=== PATIENT | male | born 1945 | race Caucasian/White ===

== ENCOUNTER 2016-09-30 20:50 | Observation (INO) | payer MEDICARE, BC ==
[~2016-09-30] VITALS: Ht 177.8 cm; Wt 80.6 kg
[~2016-09-30 20:50] MED LIST: ASPI-730 PO; FISH1CAP59 PO; UBID50TA3
--- OUTSIDE RECORDS SUMMARY | 2016-09-30 20:53 | XMS REPORT | Continuity of Care Document ---
Author Author [facility] Organization [facility] Address Unknown Phone Unavailable Care Team Providers Care Special Delivery Worker Name Role Phone FER WINKLER M.D. Primary Care Physician [phone] Insurance Providers Payer Name Policy Number Subscriber Name Relationship s Medicare [id number] Kayleen Doyle 01 Self / Same As Patient [employer]ET[employer] [id number] Nara Doyle 01 Self / Same As Patient Chief Complaint and Reason for Visit Chief Complaint Fall Reason for Visit Contusion of back Fall [id number] Laceration of scalp Problems Medical Problems Problem Onset Date Status Contusion of back Unknown Active Fall Unknown Active Back pain, thoracic Unknown Active Laceration of scalp Unknown Active Contusion of back Unknown Active Medications Medication Dose Route Sig Days/Qty Instructions Order Date Discontinued Date Status [None] 09/08/09 Active Acetaminophen/Hydrocodone Bitart 1 Tab PO q4-6hr PRN 20 Qty for pain 10/26 Active Cyclobenzaprine Hcl 10 Mg PO Every 8 hours as needed 15 Qty 02/15/14 Active Social History Social History Problem Response Recorded Date/Time Smoking Status Never smoker 02/15/2014 4:28pm Query Response Start Date Stop Date Smoking Status Never smoker Hospital Discharge Instructions No hospital discharge instructions. Plan of Care Discharge Date 02/15/14 6:58pm Disposition 01 HOME, SELF-CARE Condition at Discharge Stable Instructions/Education Provided Minor Head Injury (ED) Acute Wound Care (ED) Acute Low Back Pain (ED) Contusions in Adults (ED) Prescriptions See Medications Section Referrals FER WINKLER M.D., HENRY R MD Functional Status No functional status results. Allergies, Adverse Reactions, Alerts Allergen Type Severity Reaction Status Last Updated NO KNOWN MEDICATION ALLERGIES Adverse Reaction Unknown Active 09/08/09 Immunizations No immunization records. Vital Signs Acute Vital Signs Vital Response Date/Time Blood Pressure 142/74 mm Hg 02/15/2014 6:50pm Blood Pressure Mean 96 mm Hg 02/15/2014 6:50pm Pulse 02/15/2014 6:50pm Pulse Rate: ED 58 bpm 02/15/2014 6:50pm Respiratory Rate 14 breaths per minute (10 - 20) 02/15/2014 6:50pm Results No known relevant diagnostic tests, laboratory data and/or discharge summary. Procedures No known history of procedures. Encounters Encounter Location Date/Time Departed Emergency Room [facility] 02/15/14 4:24pm Recent Diagnosis
--- OUTSIDE RECORDS SUMMARY | 2016-09-30 20:53 | XMS REPORT | Continuity of Care Document ---
Author Author [facility] Organization [facility] Address Unknown Phone Unavailable Allergies Active Description Code Type Severity Reaction Onset Reported/Identified Relationship to Patient Clinical Status Yes No Known Medication Allergies NKMA N/A N/A 02/18/2014 Yes No Known Medication Allergies NKMA N/A N/A 02/18/2014 Medications Medication Packaging Start Date Stop Date Route Dosage Sig clopidogrel(clopidogrel 75 mg oral tablet) 1 tabs 01/29/2014 Oral 75 mg 1 tabs, Oral, Daily, 90 tabs albuterol(albuterol) 02/18/2014 04/16/2014 See Instructions , Albuterol HFA. Inhale 2 Inhalation route every 4 hours as needed., 1 Each oxyCODONE-acetaminophen(Percocet 10/325 oral tablet) 1 tabs 02/19/2014 06/17/2014 Oral 1 tabs, Oral, q4hr, 30 tabs, PRN: as needed for pain oxyCODONE-acetaminophen(Percocet 10/325 oral tablet) 1 tabs 02/25/2014 03/04/2014 Oral 1 tabs, Oral, q4hr, 42 tabs, PRN: as needed for pain oxyCODONE-acetaminophen(Percocet 10/325 oral tablet) 1 tabs 03/04/2014 03/14/2014 Oral 1 tabs, Oral, q6hr, 40 tabs, PRN: as needed for pain aspirin(aspirin 81 mg oral tablet) 1 tabs 03/09/20142015 Oral 81 mg 1 tabs, Oral, Daily, 30 tabs oxyCODONE-acetaminophen(Percocet 10/325 oral tablet) 1 tabs 03/18/2014 03/28/2014 Oral 1 tabs, Oral, q6hr, 40 tabs, PRN: as needed for pain tamsulosin(Flomax 0.4 mg oral capsule) 1 caps 04/16/20142015 Oral 0.4 mg 1 caps, Oral, Daily, 30 minutes after the same meal, 30 caps omeprazole(PriLOSEC 20 mg oral delayed release capsule) 1 caps 04/16/2014 08/26/2014 Oral 20 mg 1 caps, Oral, Daily, 30 caps simvastatin(simvastatin 40 mg oral tablet) 1 tabs 04/23/2014 Oral 40 mg 1 tabs, Oral, Bedtime (once a day), 30 tabs metoprolol(Toprol-XL 25 mg oral tablet, extended release) 1 tabs 05/12/2014 05/24/2016 Oral 25 mg 1 tabs, Oral, Daily, 30 tabs levofloxacin(Levaquin 500 mg oral tablet) 1 tabs 06/17/2014 Oral 500 mg 1 tabs, Oral, q24hr, 10 tabs albuterol(Ventolin HFA 90 mcg/inh inhalation aerosol) 2 puffs 06/17/2014 05/24/2016 Inhalation 2 puffs, Inhalation, QID, 8 g, PRN: as needed for wheezing predniSONE(predniSONE 10 mg oral tablet) 3 tabs 06/17/201404/2014 Oral 30 mg 3 tabs, Oral, qAM, 21 tabs predniSONE(predniSONE 10 mg oral tablet) 1 tabs 06/23/201406/2015 Oral 10 mg 1 tabs, Oral, Daily, take 2 qam x 7days, then 1 [id number], 21 tabs omeprazole(PriLOSEC 40 mg oral delayed release capsule) 1 caps 08/26/2014 05/24/2016 Oral 40 mg 1 caps, Oral, Daily, 30 caps tamsulosin(Flomax 0.4 mg oral capsule) 1 caps 05/24/2016 Oral 0.4 mg 0.4 mg=1 caps, Oral, Daily, 30 caps, 11 Refill(s) betamethasone topical(betamethasone valerate 0.1% topical cream) 1 shanel 05/24/2016 Topical 1 shanel, Topical, BID, 90 g, 0 Refill(s) Problems Date Dx Coded Attending Type Code Diagnosis Diagnosed By 07/02/2014 Christiano Dumont MD Reason 805.2 CLOSED FRACTURE OF DORSAL [THORACIC] VERTEBRA WITHOUT MENTION OF SPINAL COR 07/02/2014 Christiano Dumont MD Final V64.1 SURGICAL OR OTHER PROCEDURE NOT CARRIED OUT BECAUSE OF CONTRAINDICATION Procedures Results Encounters ACCT No. Visit Date/Time Discharge Status Pt. Type Provider Facility Loc./Unit Complaint [id number] 06/30/2014 08:36:00 2013 14:05:00 DIS Outpatient Tim SINGH, [facility] [address] [facility] T8 [id number] 05/25/2016 05:18:10 Document Registration [id number] 05/04/2015 11:16:30 Document Registration [id number] 05/04/2015 10:40:27 Document Registration [id number] 05/04/2015 10:32:56 Document Registration [id number] 05/04/2015 10:11:47 Document Registration [id number] 05/04/2015 10:04:08 Document Registration [id number] 05/04/2015 09:59:24 Document Registration [id number] 05/04/2015 09:49:34 Document Registration [id number] 05/04/2015 09:44:20 Document Registration [id number] 05/04/2015 09:38:19 Document Registration
--- OUTSIDE RECORDS SUMMARY | 2016-09-30 20:53 | XMS REPORT | Referral Summary ---
Author Author [facility] Organization [facility] Address Unknown Phone Unavailable Care Team Providers Care Repair Technician Name Role Phone Natalie Dumont Primary Care Physician [phone] Encounter VC Date(s): 05/24/16 - 05/24/16 [facility] [address] [place], [place] [address] Discharge Disposition: 01-Home or Self Care Attending Physician: Christiano Dumont MD Vital Signs Most recent to 1 oldest [Reference Range]: Peripheral Pulse 68 bpm Rate [60-100 bpm] (05/24/16 10:56 AM) Blood Pressure 132/60 mmHg [90-140/60-90 mmHg] (05/24/16 10:56 AM) SpO2 98 % (05/24/16 10:56 AM) Problem List Condition Effective Dates Status Health Status Informant Anxiety(Confirmed) Active Compression Active patient fracture(Confirmed)1 Gout Active (disorder)(Confirmed ) Gout(Confirmed) Active Hyperlipidemia(Confi Active rmed) Hyperlipidemia(Confi Active patient rmed) Neck pain Active (finding)(Confirmed) Neck pain(Confirmed) Active Pericarditis(Confirm 1963 Active ed) Polymyalgia(Confirme Active d) Polymyalgia Active rheumatica (disorder)(Confirmed ) Rheumatoid Active arthritis(Confirmed) 1T8 Allergies, Adverse Reactions, Alerts No Known Medication Allergies Medications betamethasone valerate 0.1% topical cream 1 shanel, Topical, BID, # 90 g, 0 Refill(s), Pharmacy: [facility] Start Date: 05/24/16 Status: Ordered Flomax 0.4 mg oral capsule 0.4 mg 1 caps, Oral, Daily, # 30 caps, 11 Refill(s), Pharmacy: [facility], 1 caps Oral Daily Start Date: 05/24/16 Status: Ordered Results No data available for this section Immunizations No data available for this section Procedures Procedure Date Related Diagnosis Body Site Angioplasty1 08/15/11 1X 2 Social History Social History Type Response Smoking Status Former smoker; Tobacco use per day: 1 Pack; Started at age: 15; Stopped at age: 32; Concerns about tobacco use in household: No Assessment and Plan Extracted from: Title: Ambulatory Patient Education Author: Pennie Culver Date: Immunology Eczema Eczema, also called atopic dermatitis, is a skin disorder that causes inflammation of the skin. It causes a red rash and dry, scaly skin. The skin becomes very itchy. Eczema is generally worse during the cooler winter months and often improves with the warmth of summer. Eczema usually starts showing signs in infancy. Some children outgrow eczema, but it may last through adulthood. CAUSES The exact cause of eczema is not known, but it appears to run in families. People with eczema often have a family history of eczema, allergies, asthma, or hay fever. Eczema is not contagious. Flare-ups of the condition may be caused by: Contact with something you are sensitive or allergic to. Stress. SIGNS AND SYMPTOMS Dry, scaly skin. Red, itchy rash. Itchiness. This may occur before the skin rash and may be very intense. DIAGNOSIS The diagnosis of eczema is usually made based on symptoms and medical history. TREATMENT Eczema cannot be cured, but symptoms usually can be controlled with treatment and other strategies. A treatment plan might include: Controlling the itching and scratching. Use tizc-wmw-bkgfsfm antihistamines as directed for itching. This is especially useful at night when the itching tends to be worse. Use ehsf-qsp-agkjknx steroid creams as directed for itching. Avoid scratching. Scratching makes the rash and itching worse. It may also result in a skin infection (impetigo) due to a break in the skin caused by scratching. Keeping the skin well moisturized with creams every day. This will seal in moisture and help prevent dryness. Lotions that contain alcohol and water should be avoided because they can dry the skin. Limiting exposure to things that you are sensitive or allergic to ( allergens). Recognizing situations that cause stress. Developing a plan to manage stress. HOME CARE INSTRUCTIONS Only take qneh-xlo-ylnenxk or prescription medicines as directed by your health care provider. Do not use anything on the skin without checking with your health care provider. Keep baths or showers short (5 minutes) in warm (not hot) water. Use mild cleansers for bathing. These should be unscented. You may add nonperfumed bath oil to the bath water. It is best to avoid soap and bubble bath. Immediately after a bath or shower, when the skin is still damp, apply a moisturizing ointment to the entire body. This ointment should be a petroleum ointment. This will seal in moisture and help prevent dryness. The thicker the ointment, the better. These should be unscented. Keep fingernails cut short. Children with eczema may need to wear soft gloves or mittens at night after applying an ointment. Dress in clothes made of cotton or cotton blends. Dress lightly, because heat increases itching. A child with eczema should stay away from anyone with fever blisters or cold sores. The virus that causes fever blisters (herpes simplex) can cause a serious skin infection in children with eczema. SEEK MEDICAL CARE IF: Your itching interferes with sleep. Your rash gets worse or is not better within 1 week after starting treatment. You see pus or soft yellow scabs in the rash area. You have a fever. You have a rash flare-up after contact with someone who has fever blisters. This information is not intended to replace advice given to you by your health care provider. Make sure you discuss any questions you have with your health care provider. Document Released: 06/28/2001 Document Revised: 04/21/2014 Document Reviewed: [employer] Interactive Patient Education 2016 [employer] No follow up information was provided.
--- OUTSIDE RECORDS SUMMARY | 2016-09-30 20:53 | XMS REPORT | Referral Summary ---
Author Organization Unknown Address Unknown Phone Unavailable Care Team Providers Care Gas Station Service Attendant Name Role Phone Natalie Dumont Primary Care Physician [phone] Encounter VC Date(s): 08/24/14 - 08/24/14 [facility] [address] [place], [place] [address] Discharge Disposition: Home or Self Care Attending Physician: Christiano Dumont MD Admitting Physician: Christiano Dumont MD Vital Signs No data available for this section Problem List Condition Effective Dates Status Health Status Informant Anxiety(Confirmed) Active Compression Active patient fracture(Confirmed)1 Gout(Confirmed) Active Gout Active (disorder)(Confirmed ) Hyperlipidemia(Confi Active rmed) Hyperlipidemia(Confi Active patient rmed) Neck pain(Confirmed) Active Neck pain Active (finding)(Confirmed) Pericarditis(Confirm 1962 Active ed) Polymyalgia(Confirme Active d) Polymyalgia Active rheumatica (disorder)(Confirmed ) Rheumatoid Active arthritis(Confirmed) 1T8 Allergies, Adverse Reactions, Alerts No Known Medication Allergies Medications aspirin 81 mg oral tablet 1 tabs, Oral, Daily, # 30 tabs, 0 Refill(s) Start Date: 03/09/14 Status: Ordered Flomax 0.4 mg oral capsule 1 caps, Oral, Daily, 30 minutes after the same meal, # 30 caps, 0 Refill(s), Pharmacy: [id number], 1 caps Oral Daily,x30 days,Instr:30 minutes after the same meal Special Instructions: 30 minutes after the same meal Start Date: 04/16/14 Stop Date: 05/16/14 Status: Ordered predniSONE 10 mg oral tablet 1 tabs, Oral, Daily, take 2 qam x 7days, then 1 [id number], # 21 tabs, 1 Refill(s ), Pharmacy: [id number], 1 tabs Oral Daily,Instr:take 2 qam x 7days, then 1 [id number] Special Instructions: take 2 qam x 7days, then 1 [id number] Start Date: 06/23/14 Stop Date: 05/25/19 Status: Ordered PriLOSEC 20 mg oral delayed release capsule 1 caps, Oral, Daily, # 30 caps, 0 Refill(s), Pharmacy: [facility] [id number], 1 caps Oral Daily,x30 days Start Date: 04/16/14 Stop Date: 05/16/14 Status: Ordered simvastatin 40 mg oral tablet 1 tabs, Oral, Bedtime (once a day), # 30 tabs, 11 Refill(s), Pharmacy: [facility] [id number], 1 tabs Oral Bedtime (once a day),x30 days Start Date: 04/23/14 Stop Date: 04/18/15 Status: Ordered Toprol-XL 25 mg oral tablet, extended release 1 tabs, Oral, Daily, # 30 tabs, 11 Refill(s), Pharmacy: [facility] [id number], 1 tabs Oral Daily Start Date: 05/12/14 Status: Ordered Ventolin HFA 90 mcg/inh inhalation aerosol 2 puffs, Inhalation, QID, as needed for wheezing, # 8 g, 3 Refill(s), Pharmacy: [facility] [id number], 2 puffs Inhalation QID,PRN:as needed for wheezing Start Date: 06/17/14 Status: Ordered Results No data available for this section Immunizations No data available for this section Procedures Procedure Date Related Diagnosis Body Site Angioplasty1 08/15/11 1X 2 Social History Social History Type Response Smoking Status Former smoker; Tobacco use per day: 1 Pack; Started at age: 15; Stopped at age: 32; Concerns about tobacco use in household: No Assessment and Plan No data available for this section
[2016-09-30] MEDS ORDERED: NORMAL SALINE 1,000 ML IV ONE (21:00)
[2016-09-30] MEDS ORDERED: CHOL200024 PO (21:21)
[2016-09-30] MEDS ORDERED: MULT1TAB69 PO (21:21)
[2016-09-30] MEDS ORDERED: IBUP-1547 PO (21:21)
[2016-09-30] MEDS ORDERED: ASPI-557 PO (21:21)
--- NOTE | 2016-09-30 21:29 | ERPDOC ---
Departure Disposition Decision Date: Sep 30, 2016 Disposition Decision Time: 22:17 Disposition: 02 TO [facility] Impression Impression Impression: Primary Impression: Syncope Syncope type: unspecified Qualified Codes: R55 - Syncope and collapse Additional Impression: Bradycardia Condition: Improved Seen By: Physician only Referrals: FER WINKLER (Family) Problems/Meds/Labs Reviewed?: Yes Medications reviewed and manag: Yes Follow up care ordered?: Yes Mental Status: Alert HPI - Syncope General Chief Complaint: Syncope Stated Complaint: HYPOTENSION, NEAR SYNCOPE W/ KANDY Time Seen by Provider: 20:58 Source: patient, family, EMS Exam Limitations: no limitations HPI - Syncope Initial Comments Patient has had several episodes of syncope associated with profound bradycardia today. First episode occurred after the patient came back in from being outside in the heat, he said and began talking with his , and appeared to go to sleep. He was unarousable for several minutes, but by the time EMS arrived, the patient was back to his normal baseline. [facility] personnel tried to sit the patient up, he had another syncopal episode with this that dropped into the 40s, systolic blood pressure less than 70, but responded to being laid back supine with initiation of IV fluids as well. Patient has similar symptoms with 2 other episodes in the past, but has not sought medical treatment for these. Patient has a history of ID 10 years ago with 2 stents, by Dr. Olea in [place] Occurred At: home Onset: Rapid Duration: 1-3 hrs Loss of Consciousness: prolonged (minutes) Current Symptoms: diaphoresis, dizziness, weakness, DENIES: blurred vision, chest pain, headache, injury, lightheadedness, loss of bladder control, loss of bowel control, motionless, nausea, pale, shallow/rapid breathing, weak/absent pulse Hx of Similar Symptoms: Yes Allergies: Coded Allergies: No Known Drug Allergies (Verified Allergy, Unknown, 09/30/16) Past History Past Medical History Metabolic: hypercholesterolemia Cardiac: CAD, ID Surgical History Cardiac: cardiac cath, cardiac stent Vaccines Hx Influenza Vaccination: No Hx Pneumococcal Vaccination: No (does not want ) Social History Smoking Status: Never smoker Does patient use chewing tobac: No Second Hand Exposure: No Substance Use Type: does not use Alcohol Intake: occasionally, 0-2 drinks per day (beer) Last Drink: prior to arrival Marital Status: Record Review Pertinent history updated: Yes Review of Systems Constitutional Constitutional: syncope, DENIES: anorexia, appetite decrease, appetite increase , chills, dizziness, fatigue, fever, night sweats, weakness ENMT Ears: DENIES: pain Hearing: DENIES: hearing loss, tinnitus Balance: DENIES: vertigo Mouth/Throat: DENIES: change in swallowing, change in voice, hoarsness, painful swallowing, sore throat Cardiovascular Cardiac: DENIES: chest pain, dyspnea on exertion Rhythm/Rate: bradycardia, DENIES: irregular beat, palpitations, tachycardia Vascular: DENIES: pedal edema Pulmonary Respiratory: DENIES: cough, dyspnea, pleuritic chest pain GI Upper Abdomen: DENIES: dysphagia, heartburn/indigestion, nausea, pain, vomiting Lower Abdomen: DENIES: blood in stool, constipation, diarrhea, pain General: DENIES: burning, dysuria, frequency, pain, urgency Musculoskeletal General: DENIES: cramps, joint pain, joint swelling, pain, weakness Integumentary Skin: DENIES: rash, sores Physical Exam General General Nourishment: well nourished, well developed, appears stated age Distress Description Patient denies distress, but appears mildly confused and somewhat weak General Body Habitus: well groomed Vitals and Pain First Documented Vital Signs Date Time Temp Pulse Resp B/P Pulse Ox O2 Delivery O2 Flow Rate FiO2 09/30/16 20:52 97.4 75 187/84 97 Room Air Weight: Kilograms: 83.000 Height (feet): 5 Height (inches): 10.00 Triage Pain Scale: RN VS reviewed by Provider: Yes Normal Exams: Head: Normocephalic w/o trauma Eyes: Pupils are PERRLA w/ EOMI, No scleral icterus, irritation, or foreign bodies noted ENMT: No facial trauma, nasal exudates, pharyngeal erythema, or exudates are noted Neck: Full range of motion, without adenopathy, JVD, bruits or thyromegaly Chest/Resp: Clear all dawson, with good airflow, and symmetry bilaterally CV: Regular rate and rhythm, without murmur or gallop, Pulses 2+ all extremities, capillary refill, <2 seconds all ext., no pedal edema noted Abdomen: Bowel sounds positive, soft, non-tender, non-distended, no hepatosplenomegaly, masses or bruits noted Lymphatic: No lymphadenopathy, or lymphedema noted Musculoskeletal: No tenderness, or deformity noted, good range of motion, all extremities Integumentary: No rashes, hives, or bruising noted, hair and nails, without abnormality Neurologic: Patient is alert, and oriented, cranial nerves, motor/sensory/ cerebellar, exams w/o gross deficits, to observation Psychiatric: Patient exhibits, appropriate attention, emotion and affect Progress Results/Orders Orders Procedure Category Date Status Time Iv Lock (Nursing) MARY KAY 09/30/16 In Process 20:58 Cbc W/Auto LAB 09/30/16 Complete Diff-Reflex Manual Ethanol LAB 09/30/16 Complete Troponin I W LAB 09/30/16 Complete Hemolysis Index EKG EKG 09/30/16 Logged Cmp - Comprehensive LAB 09/30/16 Complete Metabolic Normal Saline (Normal PHA 09/30/16 Complete Saline Iv) 21:00 Lab Results Laboratory Tests Test 09/30/16 21:23 White Blood Count 4.2T/MM3 Red Blood Count 3.91M/MM3 Hemoglobin 12.3GM/DL Hematocrit 35.4% Mean Corpuscular Volume 90.5UM3 Mean Corpuscular Hemoglobin 31.5UUG Mean Corpuscular Hemoglobin Concent 34.7GM/DL RDW Standard Deviation 38.7FL Platelet Count 148T/MM3 Mean Platelet Volume 9.0UM3 Immature Granulocyte % (Auto) 0.0% Neutrophils (%) (Auto) 61.4% Lymphocytes (%) (Auto) 20.7% Monocytes (%) (Auto) 9.3% Eosinophils (%) (Auto) 7.6% Basophils (%) (Auto) 1.0% Absolute Immature Granulocyte (auto 0.00T/MM3 Absolute Neutrophils (auto) 2.6T/MM3 Absolute Lymphocytes (auto) 0.9T/MM3 Absolute Monocytes (auto) 0.4T/MM3 Absolute Eosinophils (auto) 0.3T/MM3 Absolute Basophils (auto) 0.0T/MM3 Turbidity < 20 Sodium Level 140MEQ/L Potassium Level 4.0MEQ/L Chloride Level 106MEQ/L Carbon Dioxide Level 25MEQ/L Anion Gap 9MEQ/L Blood Urea Nitrogen 20.0MG/DL Creatinine 1.2MG/DL Glomerular Filtration Rate Calc 60 BUN/Creatinine Ratio 17RATIO Glucose Level 146MG/DL Calculated Osmolality 275MOSM/KG Calcium Level 8.8MG/DL Total Bilirubin 0.70MG/DL Icterus Index < 2 Aspartate Amino Transf (AST/SGOT) 21U/L Alanine Aminotransferase (ALT/SGPT) 25U/L Alkaline Phosphatase 62U/L Troponin I < 0.012ng/ml Total Protein 6.4G/DL Albumin 3.7G/DL Globulin 2.7G/DL Albumin/Globulin Ratio 1.4RATIO Chemistry Specimen Hemolysis < 15 Alcohol, Quantitative 15MG/DL Medications Current ED Medications Sodium Chloride (Normal Saline IV) 1,000 ml @ 0 mls/hr Q0M ONCE IV ; Start at 21:00; Stop 09/30/16 at 21:01; Status DC Progress Progress EKG shows normal sinus rhythm, mild early repolarization most prominent in V2 V3 , unchanged from prior studies. No acute ischemia or STEMI, no other ectopy CBC - N CMP - N Troponin - N After IV fluids, patient states he feels much better, but still appears significantly fatigued Orthostatics after IV fluids - normal Case to discussed with ISIDRO Mccartney for Dr. dagoberto mc, we'll admit the patient to CCU for syncope with bradycardia PEDRO MELVIN MD Sep 30, 2016 21:29
[2016-09-30 21:41] LABS: EOSINOPHILS # (AUTO) 0.3 T/MM3 (0-0.5); EOSINOPHILS % (AUTO) 7.6 % (0-4); HCT - HEMATOCRIT 35.4 % (41-53); HGB - HEMOGLOBIN 12.3 GM/DL (13.5-17.5); LYMPHOCYTES # (AUTO) 0.9 T/MM3 (1-4.8); LYMPHOCYTES % (AUTO) 20.7 % (23-45); MEAN CORPUSCULAR HGB 31.5 UUG (26-34); MEAN CORPUSCULAR HGB CONC(MCHC 34.7 GM/DL (31-37); MEAN CORPUSCULAR VOLUME 90.5 UM3 (80-100); MONOCYTES # (AUTO) 0.4 T/MM3 (0-0.8); MONOCYTES % (AUTO) 9.3 % (0-9.0); NEUTROPHILS #(AUTO)-ABSOLUTE 2.6 T/MM3 (1.8-7.7); NEUTROPHILS % (AUTO) 61.4 % (33-66); RED BLOOD COUNT 3.91 M/MM3 (4.50-5.90); WBC - WHITE BLOOD COUNT 4.2 T/MM3 (4.5-11.0)
[2016-09-30 21:51] LABS: ALBUMIN 3.7 G/DL (3.5-5.0); ALBUMIN/GLOBULIN RATIO 1.4 RATIO (1.1-2.2); ALKALINE PHOSPHATASE 62 U/L (38-126); ALT (SGPT) 25 U/L (21-72); ANION GAP 9 MEQ/L (5-15); AST (SGOT) 21 U/L (17-59); BUN/CREATININE RATIO 17 RATIO (6-26); CALCIUM 8.8 MG/DL (8.4-10.2); CHLORIDE 106 MEQ/L (98-107); CO2 - CARBON DIOXIDE 25 MEQ/L (22-30); CREATININE 1.2 MG/DL (0.8-1.5); ETHANOL 15 MG/DL (<10); GLOMERULAR FILTRATION RATE 60; GLUCOSE 146 MG/DL (75-110); SODIUM 140 MEQ/L (134-144); TOTAL PROTEIN 6.4 G/DL (6.3-8.2)
--- OUTSIDE RECORDS SUMMARY | 2016-09-30 22:45 | XMS REPORT | Continuity of Care Document ---
Author [facility] Organization [facility] Address Unknown Phone Unavailable Care Team Providers Care Central Scheduler Name Role Phone FER WINKLER M.D. Primary Care Physician [phone] Insurance Providers Payer Name Policy Number Subscriber Name Relationship s Medicare [id number] Kayleen Doyle 01 Self / Same As Patient [employer] [id number] Nara Doyle 01 Self / Same As Patient Chief Complaint and Reason for Visit Chief Complaint Fall Reason for Visit Contusion of back Fall [id number] Laceration of scalp Problems Medical Problems Problem [...] Location Date/Time Departed Emergency Room [facility] 02/15/14 4:24pm Recent Diagnosis
--- OUTSIDE RECORDS SUMMARY | 2016-09-30 22:45 | XMS REPORT | Continuity of Care Document ---
Author Author [facility] Organization [facility] Address Unknown Phone Unavailable Allergies Active Description [...] take 2 qam x 7days, then 1 [id number], 21 tabs omeprazole(PriLOSEC 40 mg oral delayed [...] Status Pt. Type Provider Facility Loc./Unit Complaint [id number] 06/30/2014 08:36:00 2013 14:05:00 DIS Outpatient Tim SINGH, [facility] F[facility] T8 [id number] 05/25/2016 05:18:10 Document Registration [id number] 05/04/2015 11:16:30 Document Registration [id number] 05/04/2015 10:40:27 Document Registration [id number] 05/04/2015 10:32:56 Document Registration [id number] 05/04/2015 10:11:47 Document Registration [id number] 05/04/2015 10:04:08 Document Registration [id number] 05/04/2015 09:59:24 Document Registration [id number] 05/04/2015 09:49:34 Document Registration [id number] 05/04/2015 09:44:20 Document Registration [id number] 05/04/2015 09:38:19 Document Registration
--- OUTSIDE RECORDS SUMMARY | 2016-09-30 23:00 | XMS REPORT | Continuity of Care Document ---
Author Author [facility] Organization [facility] Address Unknown Phone Unavailable Care Team Providers Care Cooky Machine Operator Name Role Phone FER WINKLER M.D. Primary Care Physician [phone] Insurance Providers Payer Name Policy Number Subscriber Name Relationship s Medicare [id number] Kayleen Doyle 01 Self / Same As Patient [employer] [id number] Nara Doyle 01 Self / Same As Patient Chief Complaint and Reason for Visit Chief Complaint Fall Reason for Visit Contusion of back Fall [id number] Laceration of scalp Problems Medical Problems Problem [...]
--- OUTSIDE RECORDS SUMMARY | 2016-09-30 23:00 | XMS REPORT | Continuity of Care Document ---
Author Author [facility] Organization [facility] Address Unknown Phone Unavailable Allergies Active Description [...] take 2 qam x 7days, then 1 [id number], 21 tabs omeprazole(PriLOSEC 40 mg oral delayed [...] Status Pt. Type Provider Facility Loc./Unit Complaint [id number] 06/30/2014 08:36:00 2013 14:05:00 DIS Outpatient Tim SINGH, [facility] on [address] [facility] T[facility] [id number] 05/25/2016 05:18:10 Document Registration [id number] 05/04/2015 11:16:30 Document Registration [id number] 05/04/2015 10:40:27 Document Registration [id number] 05/04/2015 10:32:56 Document Registration [id number] 05/04/2015 10:11:47 Document Registration [id number] 05/04/2015 10:04:08 Document Registration [id number] 05/04/2015 09:59:24 Document Registration [id number] 05/04/2015 09:49:34 Document Registration [id number] 05/04/2015 09:44:20 Document Registration [id number] 05/04/2015 09:38:19 Document Registration
--- NOTE | 2016-09-30 23:10 | NUR ---
SHOWER PT TO SURGERY ROOM 123 TO SHOWER PRIOR TO ADMIT TO CCU. DR BOLAÑOS PT TO SHOWER PRIOR TO ADMIT.
--- NOTE | 2016-09-30 23:30 | NUR ---
IMAGING PT TO CT VIA WHEEL CHAIR
[2016-09-30] MEDS ORDERED: SALINE FLUSH 10ml SYRINGE ONE (23:31)
[2016-09-30] MEDS ORDERED: IOHEXOL 300 MG/ML 50ml INJECTION ONE (23:31)
[2016-09-30] MEDS ORDERED: NORMAL SALINE 100 ML ONE (23:31)
[2016-09-30 23:36] LABS: MAGNESIUM 1.9 MG/DL (1.6-2.3)
--- NOTE | 2016-09-30 23:49 | NUR ---
IMAGING PT RETURN FROM IMAGING AT THIS TIME.
[2016-10-01] VITALS (31 sets, daily range): BP systolic 131–200; BP diastolic 60–97; PULSE 46–83; RESP 14–64; TEMP 98.3; O2SAT 94–98; Ht 177.8 cm; Wt 80.6 kg
--- NOTE | 2016-10-01 00:15 | NUR ---
Admit Pt admitted to CCU2 at this time via wheelchair, accompanied by Rim Turning Machine Operator. Able to transfer self to bed. Denies any pain and discomforts. RA. IVL in place. at bedside.
--- NOTE | 2016-10-01 00:15 | NUR ---
ADMIT TO CCU TOOLS DEVELOPER TRANSFER PT TO CCU AT THIS TIME.
[2016-10-01] MEDS ORDERED: IBUPROFEN 800 MG TABLET PO PRN (01:00)
--- NOTE | 2016-10-01 01:34 | HPPDOC ---
JEOVANY VEGAS TECHNICAL SALES CONSULTANT 10/01/16 0121: HPI - Adult Date DATE: 10/01/16 TIME: 01:04 General Date of Admission Date of Admission: Sep 30, 2016 at 22:19 Chief Complaint: syncope History of Present Illness Patient is a 71yo male with a history of an MT and two stent by Dr Stoll ten years ago. He spent the day doing yard work. When he came in the house for the evening he told his that he was not feeling well and was a bit dizzy. He then proceeded to sit down at the dinner table and slumped to the side with a syncopal episode. His immediatley called 911 and while she was on the phone the patient made grunting sounds while on his side. Patient does not recall any of this. Once EMS arrived they found in heart rate to be in the 40's and SBP to be less than 70. EMS sat the patient up and began talking with him and he once again lost consciousness. During this syncopal episode he also bowel and bladder function. Again, patient does not recall this incident. Patient did not want to be taken to the hospital but with his and EMS encouraging an assessment by a physician the patient reluctantly agreed to come. He states that he experienced a syncopal episode about four years ago but was an isolated incident. Denies ever being evaluated by a neurologist or having a history of seizures. Denies any accompanying symptoms of chest pain, diaphoresis, nausea, vomiting, or palpitations. Past Medical History Past Medical History Metabolic: hypercholesterolemia, DENIES: cancer, diabetes Cardiac: CAD, MT Respiratory: DENIES: pulmonary embolus GI: DENIES: ulcerative colitis Male: DENIES: UTI Neurological: DENIES: CVA, TIA, cerebral hemorrhage, concussion, head injury, headaches, migraines, neuropathy, seizures Musculoskeletal: DENIES: back pain, lupus, neck pain, rheumatoid arthritis, scleroderma Hematologic: DENIES: ITP/TTP, anemia Infectious: DENIES: hepatitis B Psychological: DENIES: OD, alcohol abuse, depression, drug abuse, psychosis, suicide attempt Surgical History Cardiac: cardiac cath, cardiac stent Current Medications Home Meds Active Scripts Lisinopril (Lisinopril) 10 Mg Tablet, 10 MG PO DAILY for 30 Days, #30 TAB Prov:EVAN KAY TECHNICAL SALES CONSULTANT 10/01/16 Reported Medications Ibuprofen (Ibuprofen) 800 Mg Tablet, 800 MG PO Q6H Y for PAIN 09/30/16 Cholecalciferol (Vitamin D3) (Vitamin D) Unknown Strength Tablet, PO DAILY 09/30/16 Multivitamin (Multivitamins) 1 Each Tablet, 1 TAB PO DAILY 09/30/16 Aspirin (Aspir 81) 81 Mg Tablet.dr, 81 MG PO DAILY 09/30/16 Ubidecarenone (Coq10) 50 Mg Tab.chew, PRN 10/31/14 Fish Oil/Dha/Epa (Fish Oil 1,200 mg Fish Oil) 1 Each Capsule, 1200 MG PO DAILY, CAP 10/31/14 Allergies: Coded Allergies: No Known Drug Allergies (Verified Allergy, Unknown, 09/30/16) Vaccines NO NO does not want Social History Smoking Status: Never smoker Does patient use chewing tobac: No Second Hand Exposure: No Substance Use Type: does not use Alcohol Intake: occasionally, 0-2 drinks per day (beer) Last Drink: prior to arrival Marital Status: Advance Directives: No DPOA for Healthcare Only Review of Systems Constitutional: DENIES: chills, difficulty falling asleep, dizziness, early awakening, fatigue, fever, night sweats, weight gain, weight loss Cardiovascular DENIES: chest pain, dyspnea on exertion, hx of rheumatic fever, murmur, orthopnea, paroxysmal nocturnal dysp Pulmonary Respiratory: DENIES: cough, dyspnea, hyperventilation, pleuritic chest pain, sputum, tachypnea GI Upper Abdomen: DENIES: dysphagia, food intolerances, heartburn/indigestion, hematemesis, nausea, vomiting General: DENIES: dysuria, frequency Integumentary Skin: DENIES: color change Hair: DENIES: alopecia Neurological General: fainting, DENIES: headache, numbness, weakness Psychiatric Psychiatric: DENIES: depression, nervousness Endocrine DENIES: heat/cold intolerance Hematologic/Lymphatic DENIES: anemia Allergic/Immunological DENIES: sneezing Physical Exam General General Nourishment: well nourished, well developed, apparent age, adult Vital Signs Vital Signs Date Time Temp Pulse Resp B/P Pulse Ox O2 Delivery O2 Flow Rate FiO2 09/30/16 22:13 85 170/93 09/30/16 20:52 97.4 97 Room Air Height (Feet): 5 Height (Inches): 10.00 Telemetry Rhythm: Sinus Rhythm Neck Brief: NOT FOUND: JVD, carotid bruits Respiratory Brief: FOUND: clear all dawson Cardiovascular (brief) Cardiac Brief: FOUND: regular rate, regular rhythm, NOT FOUND: peripheral edema Abdomen (brief) Abdominal Brief: FOUND: BS normo active x4, soft Integumentary (brief) Integumentary Brief: FOUND: dry, pink, warm Neurologic (brief) Neurological Brief: NOT FOUND: facial droop Neurologic RN Documented GCS Eye Opening: (4)Spontaneous Verbal: (5)Oriented Motor: (6)Obeys Commands Total: Psychiatric (brief) FOUND: alert, attentive, normal affect, oriented Laboratory Laboratory Tests Test 09/30/16 21:23 White Blood Count 4.2T/MM3 Red Blood Count 3.91M/MM3 Hemoglobin 12.3GM/DL Hematocrit 35.4% Mean Corpuscular Volume 90.5UM3 Mean Corpuscular Hemoglobin 31.5UUG Mean Corpuscular Hemoglobin Concent 34.7GM/DL RDW Standard Deviation 38.7FL Platelet Count 148T/MM3 Mean Platelet Volume 9.0UM3 Immature Granulocyte % (Auto) 0.0% Neutrophils (%) (Auto) 61.4% Lymphocytes (%) (Auto) 20.7% Monocytes (%) (Auto) 9.3% Eosinophils (%) (Auto) 7.6% Basophils (%) (Auto) 1.0% Absolute Immature Granulocyte (auto 0.00T/MM3 Absolute Neutrophils (auto) 2.6T/MM3 Absolute Lymphocytes (auto) 0.9T/MM3 Absolute Monocytes (auto) 0.4T/MM3 Absolute Eosinophils (auto) 0.3T/MM3 Absolute Basophils (auto) 0.0T/MM3 Turbidity < 20 Sodium Level 140MEQ/L Potassium Level 4.0MEQ/L Chloride Level 106MEQ/L Carbon Dioxide Level 25MEQ/L Anion Gap 9MEQ/L Blood Urea Nitrogen 20.0MG/DL Creatinine 1.2MG/DL Glomerular Filtration Rate Calc 60 BUN/Creatinine Ratio 17RATIO Glucose Level 146MG/DL Calculated Osmolality 275MOSM/KG Calcium Level 8.8MG/DL Magnesium Level 1.9MG/DL Total Bilirubin 0.70MG/DL Icterus Index < 2 Aspartate Amino Transf (AST/SGOT) 21U/L Alanine Aminotransferase (ALT/SGPT) 25U/L Alkaline Phosphatase 62U/L Troponin I < 0.012ng/ml Total Protein 6.4G/DL Albumin 3.7G/DL Globulin 2.7G/DL Albumin/Globulin Ratio 1.4RATIO Thyroid Stimulating Hormone (TSH) 1.92MIU/L Chemistry Specimen Hemolysis < 15 Alcohol, Quantitative 15MG/DL Assessment & Plan Problems: (1) Syncope Status: Acute Qualifiers: Syncope type: unspecified Qualified Codes: R55 - Syncope and collapse Assessment & Plan: Admitted to the ICU to be closely monitored. No s/s of defect at this time. CT of the head w/wo contrast to rule out acute abnormality. (2) Hypertension Status: Chronic Assessment & Plan: Start BB, BAYRON, and continue ASA (3) CAD (coronary artery disease) Status: Chronic Assessment & Plan: Patient takes fish oil at home for cholesterol. Does not want to take a statin. Will draw a lipid panel. Plan/Intensity of Service 10/01/16 CT of head complete results pending. EKG SR in the 70's. Will continue to monitor labs and EKG. Patient wants to go home in the morning. Has no interest in staying. BB and BAYRON started d/t HTN and hx of MT with stents. Will draw lipid panel to assess cholesterol but patient will most likely refuse to take a statin. SCDs ordered for DVT prophylaxis d/t CT of head results pending. DVT Prophylaxis: SCD'S GI Prophylaxis: Protonix Code Status Full Code Hospital Course Summary Disclaimer The hospital course summary below is not to be considered part of the above Progress Note. EVAN KAY APRN 10/01/16 1537: Past Medical History Current Medications Home Meds Active Scripts Lisinopril (Lisinopril) 10 Mg Tablet, 10 MG PO DAILY for 30 Days, #30 TAB Prov:EVAN KAY TECHNICAL SALES CONSULTANT 10/01/16 Reported Medications Ibuprofen (Ibuprofen) 800 Mg Tablet, 800 MG PO Q6H Y for PAIN 09/30/16 Cholecalciferol (Vitamin D3) (Vitamin D) Unknown Strength Tablet, PO DAILY 09/30/16 Multivitamin (Multivitamins) 1 Each Tablet, 1 TAB PO DAILY 09/30/16 Aspirin (Aspir 81) 81 Mg Tablet.dr, 81 MG PO DAILY 3/19/17 Ubidecarenone (Coq10) 50 Mg Tab.chew, PRN 10/31/14 Fish Oil/Dha/Epa (Fish Oil 1,200 mg Fish Oil) 1 Each Capsule, 1200 MG PO DAILY, CAP 10/31/14 Allergies: Coded Allergies: No Known Drug Allergies (Verified Allergy, Unknown, 09/30/16) Assessment & Plan Plan/Intensity of Service 10/01/16 Give 1L NS bolus over 2 hours. Orthostatic VS, Treat only standing BP. DC Metoprolol as he is bradycardic, Increase Lisinopril to 10mg daily, may go home later today. Come in for outpatient Holter Monitor in the next few days. ANTONIO BUTLER MD 10/04/16 1023: Past Medical History Current Medications Home Meds Active Scripts Lisinopril (Lisinopril) 10 Mg Tablet, 10 MG PO DAILY for 30 Days, #30 TAB Prov:EVAN KAY APRN 10/01/16 Reported Medications Ibuprofen (Ibuprofen) 800 Mg Tablet, 800 MG PO Q6H Y for PAIN 09/30/16 Cholecalciferol (Vitamin D3) (Vitamin D) Unknown Strength Tablet, PO DAILY 09/30/16 Multivitamin (Multivitamins) 1 Each Tablet, 1 TAB PO DAILY 09/30/16 Aspirin (Aspir 81) 81 Mg Tablet.dr, 81 MG PO DAILY 09/30/16 Ubidecarenone (Coq10) 50 Mg Tab.chew, PRN 10/31/14 Fish Oil/Dha/Epa (Fish Oil 1,200 mg Fish Oil) 1 Each Capsule, 1200 MG PO DAILY, CAP 10/31/14 Allergies: Coded Allergies: No Known Drug Allergies (Verified Allergy, Unknown, 09/30/16) Assessment & Plan Plan/Intensity of Service After examining the patient I agree with the above assessment. I am involved in the formulation of the patient's plan of care. JEOVANY VEGAS APRN Oct 01, 2016 01:21 EVAN KAY APRN Oct 01, 2016 15:37 ANTONIO BUTLER MD Oct 04, 2016 10:23
--- NOTE | 2016-10-01 06:34 | NUR ---
Status Pt slept well following admission. Denies pain and other discomforts such as chest pain, soa, n/v, etc. VSS. Up to restroom several times to void, adequate output. A&Ox3 and appropriate. IVL to left hand intact. RA.
--- NOTE | 2016-10-01 08:00 | NUR ---
Received report Patient is alert and oriented. Denies any concerns at this time. Sinus Bonilla on telemetry this morning. RA. Elevated BP. Patient states SBP in the 160s in his normal SBP. Will continue to monitor.
--- NOTE | 2016-10-01 08:29 | DI ---
Indication: ITS.REASON: syncope x3 PROCEDURE: CT HEAD W/WO CONTRAST: Comparison: None Technique: Axial CT images through the head were performed without and with IV contrast. Iterative Reconstruction dose reducing technique was utilized. Contrast: Omnipaque 300 50mL FINDINGS: The ventricles are of normal size, shape, and contour for the patient's age. Scattered low-attenuation white matter changes are age congruent. The brainstem, cerebellum, and cerebral hemispheres otherwise have a normal morphology and CT attenuation. No hemorrhage, mass effect, mass lesions, or edema is evident. No areas of abnormal enhancement are seen. The visualized portions of the skull base, sinuses, and calvarium demonstrate no abnormality. IMPRESSION: Unremarkable head CT for the patient's age, both before and after contrast. There is a preliminary report by [facility]. .
[2016-10-01] MEDS ORDERED: MULTIVITAMIN + MINERAL TABLET PO SCH (09:00)
[2016-10-01] MEDS ORDERED: ASPIRIN *EC* 81mg TABLET PO SCH (09:00)
[2016-10-01] MEDS ORDERED: METOPROLOL XL 25 MG TABLET PO SCH (09:00)
[2016-10-01] MEDS ORDERED: LISINOPRIL 5 MG TABLET PO SCH (09:00)
--- NOTE | 2016-10-01 11:52 | NUR ---
CM CM IN TO VISIT WITH PT. HE IS ALERT AND ORIENTED. HIS IS PRESENT. PT AND SPOUSE DENY DC NEEDS. PT PLANS TO RETURN HOME. HE IS GIVEN CM CONTACT INFORMATION. Addendum: 10/01/16 at 1153 by KING TAM RN Amended: Links added.
--- NOTE | 2016-10-01 13:06 | DI ---
Indication: ITS.REASON: HTN PROCEDURE: CHEST 1 VIEW: Encounter: Initial Comparison: None FINDINGS: The lungs are clear. There is no abnormal airspace opacity, pleural effusion or pneumothorax identified. The heart size, pulmonary vasculature and mediastinum are within normal limits. No significant skeletal abnormality is seen. IMPRESSION: No acute cardiopulmonary abnormality. .
[2016-10-01] MEDS ORDERED: NORMAL SALINE 1,000 ML IV SCH (15:45)
[2016-10-01] MEDS ORDERED: LISI10TA7 PO (16:17)
--- NOTE | 2016-10-01 17:03 | ECHOF ---
ECHOCARDIOGRAM DATE OF PROCEDURE October 01, 2016 This is a two-dimensional echo with spectral Doppler, color-flow and M-mode. It was obtained in a patient with syncope. Left atrial dimension is normal. Left ventricular end-diastolic dimension is normal. Left ventricular wall thickness is normal. LV systolic function is normal with ejection fraction of 73%. Right atrium is normal. Right ventricle is normal. Aortic root dimension is normal. Mitral valve shows trace of mitral regurgitation. Aortic valve appears to be trileaflet with no stenosis or insufficiency. Tricuspid valve shows trace of tricuspid regurgitation with normal estimated pulmonary artery systolic pressure of 22. Pulmonary valve shows trace of pulmonary insufficiency. There is no pericardial effusion. IMPRESSION 1. Normal LV systolic function with ejection fraction of 73%. 2. Trace of pulmonary insufficiency. 3. Trace of tricuspid regurgitation with normal estimated pulmonary artery systolic pressure of 22. 4. Trace of mitral regurgitation. MTDD
--- NOTE | 2016-10-01 18:30 | NUR ---
Discharge to home Patient discharge and medication instructions given. Standing BP done and called in to Dr. Arce. Received an okay to send patient home with standing BP of 171/74 68. IV catheter out intact. Patient is walked out to family car accompanied by spouse.
[2016-10-02 00:47] LABS: LDL CHOLESTEROL,CALCULATED 158.4 (66-159); RISK FACTOR 5.5 RATIO (0-5.0); VLDL CHOLESTEROL 21.6 MG/DL (0-28)
[2016-10-02] MEDS ORDERED: LISINOPRIL 10 MG TABLET PO SCH (09:00)
--- NOTE | 2016-10-02 12:20 | NUR ---
CM THIS CM PLACED PHONE CALL TO PATIENT POST DISCHARGE, MESSAGE LEFT FOR PATIENT TO CALL BACK WITH UPDATE ON CONDITION POST DISCHARGE.
--- NOTE | 2016-10-02 12:32 | DSPDOC ---
EVAN KAY GORE CUTTER 10/02/16 1229: General Date Date DATE: 10/02/16 TIME: 12:25 Attending Physician Tre Butler MD Admitting Physician Tre Butler MD Consulting Physician Admitting Diagnosis syncope with bradycardia Discharge Diagnosis Syncope, bradycardia, htn Laboratory Laboratory Tests Test 09/30/16 21:23 10/01/16 03:07 10/01/16 08:27 White Blood Count 4.2T/MM3 Red Blood Count 3.91M/MM3 Hemoglobin 12.3GM/DL Hematocrit 35.4% Mean Corpuscular Volume 90.5UM3 Mean Corpuscular Hemoglobin 31.5UUG Mean Corpuscular Hemoglobin Concent 34.7GM/DL RDW Standard Deviation 38.7FL Platelet Count 148T/MM3 Mean Platelet Volume 9.0UM3 Immature Granulocyte % (Auto) 0.0% Neutrophils (%) (Auto) 61.4% Lymphocytes (%) (Auto) 20.7% Monocytes (%) (Auto) 9.3% Eosinophils (%) (Auto) 7.6% Basophils (%) (Auto) 1.0% Absolute Immature Granulocyte (auto 0.00T/MM3 Absolute Neutrophils (auto) 2.6T/MM3 Absolute Lymphocytes (auto) 0.9T/MM3 Absolute Monocytes (auto) 0.4T/MM3 Absolute Eosinophils (auto) 0.3T/MM3 Absolute Basophils (auto) 0.0T/MM3 Turbidity < 20 Sodium Level 140MEQ/L Potassium Level 4.0MEQ/L Chloride Level 106MEQ/L Carbon Dioxide Level 25MEQ/L Anion Gap 9MEQ/L Blood Urea Nitrogen 20.0MG/DL Creatinine 1.2MG/DL Glomerular Filtration Rate Calc 60 BUN/Creatinine Ratio 17RATIO Glucose Level 146MG/DL Calculated Osmolality 275MOSM/KG Calcium Level 8.8MG/DL Magnesium Level 1.9MG/DL Total Bilirubin 0.70MG/DL Icterus Index < 2 Aspartate Amino Transf (AST/SGOT) 21U/L Alanine Aminotransferase (ALT/SGPT) 25U/L Alkaline Phosphatase 62U/L Troponin I < 0.012ng/ml < 0.012ng/ml < 0.012ng/ml Total Protein 6.4G/DL Albumin 3.7G/DL Globulin 2.7G/DL Albumin/Globulin Ratio 1.4RATIO Thyroid Stimulating Hormone (TSH) 1.92MIU/L Chemistry Specimen Hemolysis < 15 < 15 < 15 Alcohol, Quantitative 15MG/DL Triglycerides Level 108MG/DL Cholesterol Level 220MG/DL LDL Cholesterol, Calculated 158.4 VLDL Cholesterol 21.6MG/DL HDL Cholesterol Direct 40MG/DL Cholesterol/HDL Ratio 5.5RATIO Laboratory Tests Test 10/01/16 03:07 10/01/16 08:27 Troponin I < 0.012ng/ml (0-0.12) < 0.012ng/ml (0-0.12) Chemistry Specimen Hemolysis < 15 (0-25) < 15 (0-25) Triglycerides Level 108MG/DL (40-160) Cholesterol Level 220MG/DL (132-199) LDL Cholesterol, Calculated 158.4 (66-159) VLDL Cholesterol 21.6MG/DL (0-28) HDL Cholesterol Direct 40MG/DL (40-60) Cholesterol/HDL Ratio 5.5RATIO (0-5.0) Radiology DATE OF EXAM: 10/01/16 ORDERING DOCTOR: EVAN KAY APRN TYPE OF EXAM: CHEST 1 VIEW REASON FOR EXAM: HTN Indication: ITS.REASON: HTN PROCEDURE: CHEST 1 VIEW: Encounter: Initial Comparison: None FINDINGS: The lungs are clear. There is no abnormal airspace opacity, pleural effusion or pneumothorax identified. The heart size, pulmonary vasculature and mediastinum are within normal limits. No significant skeletal abnormality is seen. IMPRESSION: No acute cardiopulmonary abnormality. DATE OF EXAM: 09/30/16 ORDERING DOCTOR: JEOVANY VEGAS APRN TYPE OF EXAM: CT HEAD W/WO CONTRAST REASON FOR EXAM: syncope x3 Indication: ITS.REASON: syncope x3 PROCEDURE: CT HEAD W/WO CONTRAST: Comparison: None Technique: Axial CT images through the head were performed without and with IV contrast. Iterative Reconstruction dose reducing technique was utilized. Contrast: Omnipaque 300 50mL FINDINGS: The ventricles are of normal size, shape, and contour for the patient's age. Scattered low-attenuation white matter changes are age congruent. The brainstem, cerebellum, and cerebral hemispheres otherwise have a normal morphology and CT attenuation. No hemorrhage, mass effect, mass lesions, or edema is evident. No areas of abnormal enhancement are seen. The visualized portions of the skull base, sinuses, and calvarium demonstrate no abnormality. IMPRESSION: Unremarkable head CT for the patient's age, both before and after contrast. There is a preliminary report by [facility]. History of Present Illness Patient is a 71yo male with a history of an OR and two stent by Dr Stoll ten years ago. He spent the day doing yard work. When he came in the house for the evening he told his that he was not feeling well and was a bit dizzy. He then proceeded to sit down at the dinner table and slumped to the side with a syncopal episode. His immediatley called 911 and while she was on the phone the patient made grunting sounds while on his side. Patient does not recall any of this. Once EMS arrived they found in heart rate to be in the 40's and SBP to be less than 70. EMS sat the patient up and began talking with him and he once again lost consciousness. During this syncopal episode he also bowel and bladder function. Again, patient does not recall this incident. Patient did not want to be taken to the hospital but with his and EMS encouraging an assessment by a physician the patient reluctantly agreed to come. He states that he experienced a syncopal episode about four years ago but was an isolated incident. Denies ever being evaluated by a neurologist or having a history of seizures. Denies any accompanying symptoms of chest pain, diaphoresis, nausea, vomiting, or palpitations. Objective Vital Signs Telemetry Rhythm: Sinus Rhythm Height (Feet): 5 Height (Inches): 10.00 Weight (Kilograms): 80.600 General Alert, Orientated x 3, Cooperative ENMT (Brief) mucosa moist Neck (Brief) NOT FOUND: JVD, carotid bruits Respiratory (Brief) clear all dawson, equal bilaterally, NOT FOUND: rales, wheezes Cardiovascular (Brief) regular rhythm, NOT FOUND: click, gallop, murmur, pedal edema, regular rate ( bradycardia), rub Abdomen (Brief) BS normo active x4, soft, NOT FOUND: tender Integumentary (Brief) dry, pink, warm Psychiatric (Brief) alert, oriented Medications Current Medications Iohexol 1 bottle 1 bottle STK-MED ONCE .ROUTE ; Start 09/30/16 at 23:31; Stop at 23:32; Status DC Sodium Chloride (NS) 100 ml @ As Directed STK-MED ONCE .ROUTE ; Start 09/30/16 at 23:31; Stop 09/30/16 at 23:32; Status DC Sodium Chloride (Iv Flush) 10 ml STK-MED ONCE .ROUTE ; Start 09/30/16 at 23:31; Stop 09/30/16 at 23:32; Status DC Aspirin (Ecotrin) 81 mg DAILY PO Last administered on 10/01/16 09:37; Start at 09:00; Stop 10/01/16 at 19:11; Status DC Ibuprofen (Motrin) 800 mg Q6H PRN PO PAIN; Start 10/01/16 at 01:00; Stop at 19:11; Status DC Multivitamins/ Minerals (Therapeutic - M) 1 tab DAILY PO Last administered on 09:37; Start 10/01/16 at 09:00; Stop 10/01/16 at 19:11; Status DC Lisinopril (Prinivil) 5 mg DAILY PO Last administered on 10/01/16 09:37; Start 10/01/16 at 09:00; Stop 10/01/16 at 15:35; Status DC Metoprolol Succinate (Toprol Xl) 25 mg DAILY PO Last administered on 10/01/16 09:36; Start 10/01/16 at 09:00; Stop 10/01/16 at 15:35; Status DC Lisinopril 10 mg 10 mg DAILY PO ; Start 10/02/16 at 09:00; Stop 10/02/16 at 09: 00; Status DC Sodium Chloride (Normal Saline IV) 1,000 ml @ 500 mls/hr Q2H IV Last administered on 10/01/16 15:58; Start 10/01/16 at 15:45; Stop 10/01/16 at 17:44 ; Status DC Hospital Course Deyvi was admitted to CCU for observation. He had no further syncope and telemetry was without event. EKG without conduction abnormalities or ischemic ST changes. He appeared low fluid volume, give 1L NS bolus, treat standing BP only. Will have him come for outpatient Holter monitor on Saturday10/03/16 at 2pm Problems: (1) Syncope Status: Acute (2) Hypertension Status: Chronic (3) CAD (coronary artery disease) Status: Chronic GI Prophylaxis: Protonix Code Status Full Code Home Meds Active Scripts Lisinopril (Lisinopril) 10 Mg Tablet, 10 MG PO DAILY for 30 Days, #30 TAB Prov:EVAN KAY GORE CUTTER 10/01/16 Reported Medications Ibuprofen (Ibuprofen) 800 Mg Tablet, 800 MG PO Q6H Y for PAIN 09/30/16 Cholecalciferol (Vitamin D3) (Vitamin D) Unknown Strength Tablet, PO DAILY 09/30/16 Multivitamin (Multivitamins) 1 Each Tablet, 1 TAB PO DAILY 09/30/16 Aspirin (Aspir 81) 81 Mg Tablet.dr, 81 MG PO DAILY 09/30/16 Ubidecarenone (Coq10) 50 Mg Tab.chew, PRN 10/31/14 Fish Oil/Dha/Epa (Fish Oil 1,200 mg Fish Oil) 1 Each Capsule, 1200 MG PO DAILY, CAP 10/31/14 Discharge Disposition Discharged to home in good and stable condition in care of himself with RX for Lisinopril 10mg daily for his BP . Will have him come for outpatient Holter monitor on Saturday10/03/16 at 2pm TRE BUTLER MD 10/04/16 1030: Hospital Course Home Meds Active Scripts Lisinopril (Lisinopril) 10 Mg Tablet, 10 MG PO DAILY for 30 Days, #30 TAB Prov:EVAN KAY Natalie GORE CUTTER 10/01/16 Reported Medications Ibuprofen (Ibuprofen) 800 Mg Tablet, 800 MG PO Q6H Y for PAIN 09/30/16 Cholecalciferol (Vitamin D3) (Vitamin D) Unknown Strength Tablet, PO DAILY 09/30/16 Multivitamin (Multivitamins) 1 Each Tablet, 1 TAB PO DAILY 09/30/16 Aspirin (Aspir 81) 81 Mg Tablet.dr, 81 MG PO DAILY 09/30/16 Ubidecarenone (Coq10) 50 Mg Tab.chew, PRN 10/31/14 Fish Oil/Dha/Epa (Fish Oil 1,200 mg Fish Oil) 1 Each Capsule, 1200 MG PO DAILY, CAP 10/31/14 Discharge Disposition After examining the patient I agree with the above assessment. I am involved in the formulation of the patient's plan of care. EVAN KAY APRN Oct 02, 2016 12:29 TRE BUTLER MD Oct 04, 2016 10:30
== END 2016-10-01 18:30 | disposition home or self-care (01) ==
LOC: ED 20:50 → EDHOLD 22:19 → CCU 10-01 00:15
PROVIDERS: ADMIT Internal Medicine Cardiovascular Disease; ATTEND Internal Medicine Cardiovascular Disease
DX: R55 Syncope and collapse (principal); R00.1 Bradycardia, unspecified; I10 Essential (primary) hypertension; I25.10 Atherosclerotic heart disease of native coronary artery without angina pectoris; I25.2 Old myocardial infarction; Z79.82 Long term (current) use of aspirin; Z79.1 Long term (current) use of non-steroidal anti-inflammatories (NSAID); Z79.899 Other long term (current) drug therapy; E78.00 Pure hypercholesterolemia, unspecified; Z95.5 Presence of coronary angioplasty implant and graft
CPT/HCPCS: 36415; 70470; 71010; 80053; 80061; 80307; 83735; 84443; 84484; 85025; 93005; 93306; 96360; 96361; 99285; A9270; G0378; J7030; J7050; Q9967; 99218